=== PATIENT | female | born 1980 | race Caucasian/White ===

== ENCOUNTER 2020-05-27 21:17 | Emergency (ER) | payer BC ==
[~2020-05-27] VITALS: Ht 182.9 cm; Wt 97.5 kg
[2020-05-27] MEDS ORDERED: ALBU8.5H8 IH (21:31)
[2020-05-27 21:55] LABS: *BILIRUBIN,URIN NEGATIVE (NEGATIVE); *CLARITY,URINE CLEAR (CLEAR); *COLOR,URINE YELLOW (YELLOW); *KETONES,URINE 1+ (NEGATIVE); *UROBILINOGEN,URINE 0.2 E.U./dl (NORMAL); LEUKOCYTE ESTERASE ,URINE NEGATIVE (NEGATIVE); NITRITE, URINE NEGATIVE (NEGATIVE); PH,URINE 5.5 (5.0-8.0); UGLUCOSE NEGATIVE (NEGATIVE)
[2020-05-27 21:56] LABS: *BLOOD, URINE TRACE LYSED (NEGATIVE)
[2020-05-27 21:57] LABS: *URINE HCG, QUAL NEGATIVE (NEGATIVE)
[2020-05-27] MEDS ORDERED: IV NORMAL SALINE 1000 ML BAG IV ONE (22:00)
[2020-05-27] MEDS ORDERED: ONDANSETRON 4 MG/2 ML VIAL IV ONE (22:00)
[2020-05-27] MEDS: LOPERAMIDE HCL 2 MG CAPSULE PO ONE ×2 (22:12→23:10)
[2020-05-27 22:13] LABS: BASOPHILS % (AUTO) 0.3 % (0.0-2.0); EOSINOPHILS % (AUTO) 0.1 % (0.0-7.0); HEMATOCRIT 39.1 % (31.2-41.9); HEMOGLOBIN 13.1 g/dL (10.9-14.3); LYMPHOCYTES # (AUTO) 1.7 K/uL (20.0-40.0); LYMPHOCYTES % (AUTO) 12.5 % (20.5-51.5); MEAN CORPUSCULAR HEMOGLOBIN 28.7 uug (24.7-32.8); MEAN CORPUSCULAR HGB CONC 34 g/dL (32.3-35.6); MEAN CORPUSCULAR VOLUME 85.2 fL (75.5-95.3); MONOCYTES # (AUTO) 1.2 K/uL (2.0-10.0); MONOCYTES % (AUTO) 9.1 % (0.0-11.0); NEUTROPHILS # (AUTO) 10.5 K/uL (1.8-8.9); PLATELET COUNT (AUTO) 293 K/uL (179-408); RED BLOOD CELL COUNT(AUTO) 4.59 MIL/uL (3.63-4.92); WHITE BLOOD COUNT (AUTO) 13.4 K/uL (3.8-11.8)
[2020-05-27] MEDS ORDERED: ONDANSETRON 4 MG/2 ML VIAL ONE (22:15)
[2020-05-27 22:18] LABS: CREATININE 0.9 mg/dL (0.6-1.3); POTASSIUM 3.6 mmol/L (3.5-5.1)
[2020-05-27 22:24] LABS: BILIRUBIN,DIRECT 0.2 mg/dL (0.0-0.2); BILIRUBIN,TOTAL 0.8 mg/dL (0.2-1.0); TOTAL PROTEIN, SERUM 7.4 g/dL (6.4-8.2)
[2020-05-27 22:27] LABS: BACTERIA,URINE FEW /HPF (NONE SEEN); RBC,URINE 0-3 /HPF (0-3); SQUAMOUS EPITHELIAL CELL,UR FEW /HPF (NONE SEEN); WBC,URINE 0-3 /HPF (0-3)
[2020-05-27 23:06] LABS: *OCCULT BLOOD STOOL POSITIVE (NEGATIVE)
[2020-05-27] MEDS ORDERED: LOPERAMIDE HCL 2 MG CAPSULE ONE (23:06)
[2020-05-28] MEDS ORDERED: ONDA4TAB5 PO (00:01)
--- NOTE | 2020-05-28 00:07 | NUR ---
IV removed. Catheter intact and site benign. Pressure and 4x4 gauze applied to site. No bleeding noted.
--- NOTE | 2020-05-28 00:07 | NUR ---
Patient discharged to home in stable condition. Written and verbal after care instructions given. Patient verbalizes understanding of instructions. Stressed follow up or return to ER for worsening s/s.
[2020-05-28 00:08] VITALS: BP 133/77
--- NOTE | 2020-05-29 15:30 | NUR ---
Received telephone call from [facility] stating pt is positive for C-diff, (on duty ERMD) notified. I called and spoke with the pt via telephone, pt stated she will come to ER for recheck after she gets off of work today.
--- NOTE | 2020-05-30 09:01 | NUR ---
Spoke to patient regarding positive C. difficile. Called in oral vancomycin to her pharmacy.
== END 2020-05-28 00:08 | disposition home or self-care (01) ==
LOC: ER 21:20
DX: A04.72 Enterocolitis due to Clostridium difficile, not specified as recurrent (principal); Z82.49 Family history of ischemic heart disease and other diseases of the circulatory system; J45.909 Unspecified asthma, uncomplicated
CPT/HCPCS: 36415; 83690; 84703; 85025; 86625; 87046; 89055; A4663; J2405; J7030